=== PATIENT | female | born 1970 | race Caucasian/White ===

== ENCOUNTER 2017-07-31 00:51 | Emergency (ER) | payer OTHER ==
--- NOTE | 2017-07-31 01:10 | EDPHY ---
H & P Stated Complaint: SI, EtOH Source: Patient, EMS Exam Limitations: No limitations Time Seen by Provider: 07/31/17 00:54 HPI/ROS: HPI The patient presents with suicidal ideation. She was picked up by police just prior to arrival, walking [place] the side of the highway. She had admitted to driving her car before this. She was arrested for a DUI. [facility] was [facility] and then confessed that she was feeling suicidal and was brought into the emergency department for further evaluation. She says that she is experiencing a lot of stress in her life. Her mom had an open heart surgery performed in March and subsequently has suffered from multiple strokes and now is at home with the patient. The patient says that her mom is no longer herself and has multiple needs in her care which is very difficult for the patient. The patient states that in her life she "does not want to be here and does not want to do anything any more." REVIEW OF SYSTEMS Constitutional: No fever, no chills. Eyes: No discharge. ENT: No sore throat. Cardiovascular: No chest pain, no palpitations. Respiratory: No cough, no shortness of breath. Gastrointestinal: No abdominal pain, no vomiting. Genitourinary: No hematuria. Musculoskeletal: No back pain. Skin: No rashes. Neurological: No headache. PMHx: Crohn's disease, asthma, anxiety, status post hysterectomy Soc Hx: Alcohol use, lives at home with her mother and [place], works in medical billing PHYSICAL General Appearance: Alert, tearful in intoxicated Eyes: Pupils equal and round no pallor or injection ENT, Mouth: Mucous membranes moist Respiratory: There are no retractions, lungs are clear to auscultation Cardiovascular: Regular rate and rhythm Gastrointestinal: Abdomen is soft and non-tender, no masses, bowel sounds normal Neurological: A&O, moves all extremities Skin: Warm and dry, no rashes Musculoskeletal: Neck is supple non tender Extremities: symmetrical, full range of motion Psychiatric: Patient is oriented X 3, there is no agitation (Riguzzi,Selena) Constitutional: Initial Vital Signs Temperature (C) 36.7 C 07/31/17 00:59 Heart Rate 104 H 07/31/17 00:59 Respiratory Rate 18 07/31/17 00:59 Blood Pressure 135/95 H 07/31/17 00:59 O2 Sat (%) 97 04/30/18 00:59 O2 Delivery Mode Room Air Allergies/Adverse Reactions: codeine Allergy (Verified 07/31/17 00:55) Home Medications: Medication Instructions Recorded Cymbalta 07/31/17 Flexeril 10 MG (*) 07/31/17 LaMICtal 07/31/17 Ranitidine HCl 07/31/17 Xanax 07/31/17 Medical Decision Making ED Course/Re-evaluation: 7:00 a.m., I took over care of this patient. The patient is on an M1 hold for alcohol intoxication and suicidal ideation. The patient is to be evaluated later this morning. 3:00 p.m., this patient has been seen and evaluated by Behavioral Health. We are awaiting disposition. Care turned over to Dr. Pierce Morris at this time. ( Candace Diggs) Differential Diagnosis: This is a 47-year-old female with history of anxiety who presents on M1 hold after being arrested for DUI and then admitting that she was feeling suicidal. The patient is clearly intoxicated, quite upset, has increased social stressors given her mom's recent decline in health. Differential diagnosis includes suicidal ideation, alcohol intoxication, polysubstance abuse, acute stress response. In the emergency department, patient was allowed to sleep. Labs were checked and were unremarkable except for elevated alcohol level. Eventually her breathalyzer was 0.035. The psychiatric instrumental teacher will see her later this morning. At 7:00 a.m., the case is signed out to the oncoming provider Dr. Diggs pending psychiatric evaluation. (Selena Quezada) - Data Points Laboratory Results: Laboratory Results 07/31/17 01:05 07/31/17 01:05 Medications Given: Duloxetine HCl (Cymbalta) 60 mg PO EDNOW ONE Stop: 08/01/17 12:23 Last Admin: 07/31/17 12:51 Dose: 60 mg Discontinued Medications Lamotrigine (Lamictal) 200 mg PO EDNOW ONE Stop: 07/31/17 12:21 Last Admin: 07/31/17 12:51 Dose: 200 mg Ondansetron HCl (Zofran Odt) 4 mg PO EDNOW ONE Stop: 07/31/17 12:24 Last Admin: 07/31/17 12:51 Dose: 4 mg Ranitidine HCl (Zantac) 150 mg PO EDNOW ONE Stop: 07/31/17 12:31 Last Admin: 07/31/17 12:51 Dose: 150 mg Departure - Departure Disposition: Home, Routine, Self-Care Clinical Impression: Stress response Alcohol intoxication Qualifiers: Complication of substance-induced condition: uncomplicated Qualified Code(s): F10.920 - Alcohol use, unspecified with intoxication, uncomplicated Condition: Good Instructions: Alcohol Intoxication (ED) Referrals: [facility],. [Clinic] - As per Instructions
[2017-07-31 01:15] LABS: PLATELET COUNT 270 10^3/uL (150-400)
[2017-07-31] MEDS ORDERED: lamoTRIgine 100 MG TAB PO ONE (12:20)
[2017-07-31] MEDS ORDERED: ONDANSETRON DISINTEGRATING 4 MG TAB PO ONE (12:23)
[2017-07-31] MEDS ORDERED: RANITIDINE HCL 150 MG/10 ML UDCUP PO ONE (12:30)
[2017-07-31 16:24] VITALS: BP 122/65
[2017-07-31] MEDS ORDERED: LOPERAMIDE HCL 2 MG CAP PO ONE (16:36)
[2017-07-31] MEDS ORDERED: NICOTINE 21 MG/24 HR PATCH TD ONE ×2 (18:39→18:52)
[2017-08-01] MEDS ORDERED: DULoxetine 60 MG CAP PO ONE (12:22)
[2017-08-01] MEDS ORDERED: RANITIDINE SYRUP 15 MG/1 ML UDSYR PO ONE (12:23)
== END 2017-07-31 20:30 ==
DX: F43.9 Reaction to severe stress, unspecified (principal); F10.920 Alcohol use, unspecified with intoxication, uncomplicated; J45.909 Unspecified asthma, uncomplicated
CPT/HCPCS: 80305; G0480